=== PATIENT | female | born 2000 | race Hispanic/Latino ===

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

== ENCOUNTER 2020-01-31 11:27 | Emergency (ER) | payer MEDICAID, OTHER ==
[2020-01-31] MEDS ORDERED: SUCRALFATE 1 GM/10 ML 1 GM UD PO ONE (11:40)
[2020-01-31] MEDS ORDERED: ONDANSETRON ODT 8 MG TAB SL ONE (11:40)
--- NOTE | 2020-01-31 12:40 | RAD ---
EXAM DESCRIPTION: Abdomen Series CLINICAL HISTORY: 19 years Female, diarrhea, vomiting COMPARISON: None. FINDINGS: Chest x-ray shows clear lungs. Heart size is normal with normal vascularity. No consolidating infiltrate, pneumothorax or pleural effusion. Upright view the abdomen is negative for free air under the diaphragm. No air-fluid levels in the bowel loops. Supine view shows no abnormal small bowel dilatation to suggest obstruction. Bones are normal for age. No mass or visceromegaly. IMPRESSION: Negative. Electronically signed by: Alfonzo Norman MD 01/31/2020 12:39 PM CDT
[2020-01-31] MEDS ORDERED: predniSONE 20 MG TAB PO ONE (12:41)
--- NOTE | 2020-01-31 12:47 | ED.PDOC ---
History of Present Illness - General Chief Complaint: GI Problem Stated Complaint: Vomiting, Diarrhea Time Seen by Provider: 01/31/20 11:36 Source: patient Exam Limitations: no limitations - History of Present Illness Initial Comments: The patient is a 19-year-old female presenting to the emergency room secondary to nausea and vomiting along with some diarrhea for the last 24 hours. Abdominal discomfort is diffuse. No point tenderness. No fever. No history of any gallbladder problems in the past. No specific right upper quadrant or right lower quadrant pain. She does have a history of gluten sensitivity and has had issues with that in the past. There has been a significant number of patients with a viral gastroenteritis around town. No current respiratory symptoms. No known coronavirus exposure though the numbers in the community are escalating. Timing/Duration: 24 hours Severity: moderate Improving Factors: nothing Worsening Factors: nothing Associated Symptoms: loss of appetite, malaise, nausea/vomiting Allergies/Adverse Reactions: Allergies Codeine Adverse Reaction (Verified 06/27/18 17:55) Home Medications: Ambulatory Orders Ondansetron Odt [Zofran ODT] 4 mg PO Q8HR PRN #5 tab 01/31/20 Sucralfate Tab [Carafate Tab] 1 gm PO QID #60 tab 01/31/20 predniSONE [Prednisone] 20 mg PO DAILY #5 tab 01/31/20 Review of Systems - Review of Systems Constitutional: States: no symptoms reported EENTM: States: no symptoms reported Respiratory: States: no symptoms reported Cardiology: States: no symptoms reported Gastrointestinal/Abdominal: States: diarrhea, nausea, vomiting Genitourinary: States: no symptoms reported Musculoskeletal: States: no symptoms reported Skin: States: no symptoms reported Neurological: States: no symptoms reported Endocrine: States: no symptoms reported All other Systems: No Change from Baseline Past Medical History (General) - Patient Medical History Hx Seizures: No Hx Stroke: No Hx Dementia: No Hx Asthma: Yes Hx of COPD: No Hx Cardiac Disorders: No Hx Congestive Heart Failure: No Hx Pacemaker: No Hx Hypertension: No Hx Thyroid Disease: No Hx Diabetes: No Hx Gastroesophageal Reflux: No Hx Renal Disease: No Hx Cancer: No Hx of HIV: No Hx Hepatitis C: No Hx MRSA: No - Vaccination History Hx Tetanus, Diphtheria Vaccination: Yes Hx Influenza Vaccination: No Hx Pneumococcal Vaccination: No - Social History Hx Tobacco Use: Yes Hx Chewing Tobacco Use: No Hx Alcohol Use: No Hx Substance Use: No Hx Substance Use Treatment: No Hx Depression: No Hx Physical Abuse: No Hx Emotional Abuse: No Hx Suspected Abuse: No - Female History Patient is a Female of Child Bearing Age (10 -59 yrs old): Yes Hx Last Menstrual Period: 06/07/18 Patient : No Expected Date of Delivery:: 03/15/15 Family Medical History - Family History Maternal Grandparents Living Status: Still Living Hx Family Diabetes: Yes - On pt father side, grandmother has diabetes Hx Family;Other: On pt mother side great uncle of leukmia. Mother Family History: Unknown Living Status: Still Living Hx Family Asthma: Yes Hx Family Hypertension: Yes Hx Cardiac Disease: Yes Hx Family Diabetes: Yes - type 2 Physical Exam - Physical Exam General Appearance: Alert, Comfortable, No apparent distress Eye Exam: bilateral normal Ears, Nose, Throat: hearing grossly normal, normal pharynx Neck: full range of motion, supple Respiratory: lungs clear, normal breath sounds, no respiratory distress, no accessory muscle use Cardiovascular/Chest: normal peripheral pulses, regular rate, rhythm, no edema Peripheral Pulses: radial,right: 2+, radial,left: 2+, dorsalis pedis,right: 2+, dorsalis pedis,left: 2+ Gastrointestinal/Abdominal: soft, other - Mild diffuse discomfort to palpation. No rebound or peritoneal signs. No palpable mass. 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 She does have mild dehydration however has been able to tolerate oral liquids here after medications. The patient most likely has a viral gastroenteritis on top of her gluten s ensitivity. She does need to manage her diet carefully. The patient will be written for Zofran for as needed use to control any nausea vomiting and she will also be written for Carafate for the next few weeks to reduce stomach acid. Also be written for 5 days of oral prednisone due to history of gluten sensitivity. 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 Keep well-hydrated and maintain a bland diet otherwise. Keep routine follow-up with primary care doctor. [id number] - Results/Orders Results/Orders: Laboratory Results - last 24 hr 01/31/20 01/31/20 12:03 12:03 Urine Color Yellow Urine Appearance Sl cloudy Urine pH 5.5 Ur Specific [place] >= 1.030 Urine Protein 100 H Urine Glucose (UA) Negative Urine Ketones >=160 Urine Blood Negative Urine Nitrite Negative Urine Bilirubin Small H Urine Urobilinogen 0.2 Ur Leukocyte Esterase Negative Urine RBC 0-1 Urine WBC 1-3 Ur Epithelial Cells 10-20 Urine Bacteria 1+ Urine Mucus Moderate Urine HCG, Qual Negative 2 view abdomen shows no evidence of any obstruction or free air. No significant constipation. No acute pathology. - EKG/XRAY/CT CT Ordered: No CT Interpretation Call Back: No Departure - Departure Clinical Impression: Gastroenteritis Disposition: Discharge to Home or Self Care Condition: Fair Departure Forms: ED Discharge - Pt. Copy, Patient Portal Self Enrollment Instructions: DI for Diarrhea and Traveler's Diarrhea -- Adult Diet: bland diet - Gluten-free Activity: increase activity as tolerated Prescriptions: Ondansetron Odt [Zofran ODT] 4 mg PO Q8HR PRN #5 tab PRN Reason: Nausea--Moderate predniSONE [Prednisone] 20 mg PO DAILY #5 tab Sucralfate Tab [Carafate Tab] 1 gm PO QID #60 tab Home Medications: Ambulatory Orders Ondansetron Odt [Zofran ODT] 4 mg PO Q8HR PRN #5 tab 01/31/20 Sucralfate Tab [Carafate Tab] 1 gm PO QID #60 tab 01/31/20 predniSONE [Prednisone] 20 mg PO DAILY #5 tab 01/31/20 Additional Instructions: The patient is a 19-year-old female presented emergency room secondary to about a days worth of nausea vomiting and diarrhea. She does have mild dehydration however has been able to tolerate oral liquids here after medications. The patient most likely has a viral gastroenteritis on top of her gluten sensitivity. She does need to manage her diet carefully. The patient will be written for Zofran for as needed use to control any nausea vomiting and she will also be written for Carafate for the next few weeks to reduce stomach acid. Also be written for 5 days of oral prednisone due to history of gluten sensitivity. 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 Keep well-hydrated and maintain a bland diet otherwise. Keep routine follow-up with primary care doctor.
[2020-01-31] MEDS ORDERED: predniSONE 20 MG TAB ONE (12:51)
[2020-01-31 13:03] VITALS: BP 120/75; TEMP 98.3; O2SAT 99
== END 2020-01-31 13:04 | disposition home or self-care (01) ==
LOC: ER 11:27
DX: K52.9 Noninfective gastroenteritis and colitis, unspecified (principal); R11.2 Nausea with vomiting, unspecified; F17.200 Nicotine dependence, unspecified, uncomplicated
CPT/HCPCS: 74019; 81001; 81025; J7512